=== PATIENT | female | born 1940 | race Caucasian/White ===

== ENCOUNTER 2019-02-12 00:31 | Observation (INO) | payer MEDICARE ==
[2019-02-12 01:51] LABS: Magnesium 1.2 mg/dL (1.6-2.6); Phosphorus 2.7 mg/dL (2.3-4.7)
[2019-02-12] MEDS ORDERED: hydrALAZINE 20 MG/ML VIAL ONE (02:01)
[2019-02-12] MEDS ORDERED: traMADol HCl 50 MG TAB PO PRN (02:01)
[2019-02-12] MEDS ORDERED: Ondansetron PF 4 MG/2 ML Vial IVP PRN (02:01)
[2019-02-12] MEDS ORDERED: hydrALAZINE 20 MG/ML VIAL SLOW IVP PRN (02:01)
[2019-02-12] MEDS ORDERED: Dextrose 5% in Water 1,000 ML IV PRN (02:03)
[2019-02-12] MEDS ORDERED: Ondansetron ODT 4 MG TAB PO PRN (02:03)
[2019-02-12] MEDS ORDERED: Dextrose 50% Abboject 50 ML SYRINGE SLOW IVP PRN (02:03)
[2019-02-12] MEDS ORDERED: Magnesium 2 GM/50 ML 2 GM in Premix Bag 1 BAG IVPB SCH (02:15)
[2019-02-12] MEDS ORDERED: Sodium Chloride 0.9% 1,000 ML IV SCH (02:30)
--- NOTE | 2019-02-12 02:46 | HP ---
This is Leighann Kern NP dictating a report for Chad Worley MD. REQUESTING PHYSICIAN: Dr. Dennis. HISTORY OF PRESENT ILLNESS: This is an 78-year-old female who was a transfer from [facility]. The patient had a ground level fall at home. The patient lives at home with her daughter [place] a farm. The patient was outside walking when she tripped and fell. The patient denies any dizziness, shortness of breath, or chest pain prior to falling. The patient denies any loss of consciousness. The patient reported pain and swelling to the left side of her face and swelling to her left hand. The patient was evaluated in [place] and transferred for continuous monitoring as the patient currently takes Eliquis daily. The patient did sustain a CVA approximately 4 years ago in which the patient was put on Eliquis. The patient's only deficit from her CVA is memory loss according to her daughter. The patient does report a recent cough, but denies any fever or chest pain. The patient initially did not want to be admitted to the hospital, but the patient's daughter encouraged her to stay overnight for observation. The patient finally agreed. The patient's left eyebrow superficial laceration was closed in [place] ER. The patient received 1 L normal saline in the ER in [place]. REVIEW OF SYSTEMS: Review of systems is negative unless otherwise indicated in the above HPI. PAST MEDICAL HISTORY: CVA, dementia, hypertension. PAST SURGICAL HISTORY: Left shoulder open reduction and internal fixation, left hip ORIF, left elbow ORIF, cholecystectomy. ALLERGIES: NO KNOWN DRUG ALLERGIES. SOCIAL HISTORY: Former tobacco user. The patient used to smoke 2 packs a day before her CVA 4 years ago. No alcohol or drug use. CURRENT MEDICATIONS: Eliquis and a blood pressure medication, unknown. PHYSICAL EXAMINATION: VITAL SIGNS: Blood pressure 156/81, pulse 108, respirations 20, temperature 98.9, SpO2 100% on room air. GENERAL: Elderly appearing female, hypertensive, in no distress. HEENT: Normocephalic, significant left facial ecchymosis and swelling to the left forehead, sutures in place to the left forehead. Pupils equal and reactive, no visual changes, moist mucous membranes, no cervical tenderness, no step-offs, trachea midline. RESPIRATORY: Equal chest rise and fall, bilateral breath sounds clear. No wheezing, rales, or rhonchi. No obvious chest deformity. CARDIOVASCULAR: Regular rate, mildly tachycardic, systolic heart murmur. ABDOMEN: Soft, nontender, nondistended. EXTREMITIES: Contusion and abrasion to left shoulder, splint in place to left lower extremity, positive movement and sensation, cap refill less than 2. Ecchymosis to fingers. Normal range of motion of both shoulders. Lower extremities with no obvious injuries. No pedal edema. Distal pulses 2+. PELVIS: Stable. NEUROLOGICAL: The patient is oriented to person, place, time, and event. GCS 15. LABORATORY DATA: WBC 18.8, RBC 4.70, hemoglobin 13.8, hematocrit 42.5, platelets 186. Sodium 139, potassium 3.6, chloride 102, CO2 21, anion gap 20, BUN 39, creatinine 2.01, estimated GFR 24, glucose 106, calcium 9.7, phosphorus 2.7, magnesium 1.2, alkaline phos 115. INR 1.7, Urinalysis positive for UTI. DIAGNOSTIC DATA: 1. Cervical spine CT, no cervical spine fracture. 2. Left forearm x-ray, no fracture. 3. Brain CT, no intraparenchymal hemorrhage or extra-axial hematoma. Extensive left facial and scalp soft tissue changes. No evidence of fracture. 4. Left hand x-ray, minimally displaced fracture along the proximal phalanx of the 5th digit. 5. Left shoulder x-ray, no fracture. 6. Left humerus x-ray, no evidence of fracture. 7. Facial bone CT, no acute fracture. 8. Chest Xray, no acute abnormality. Chronic lung changes. IMPRESSION: 1. Status post ground level fall, on Eliquis. 2. Left facial laceration and contusions. 3. Left 5th metacarpal fracture. 4. Hypomagnesium. 5. Uncontrolled hypertension. 6. Acute on chronic kidney disease stage 4. 7. Urinary tract infection, present on admission. 8. History of hypertension, cerebrovascular accident, dementia. PLAN: Admit the patient for observation. Gentle hydration overnight. Regular diet as tolerated. Left hand fracture has been splinted by the ER. We will consult Orthopedic Surgery for possible followup outpatient. We will replace electrolytes. We will restart the patient's home blood pressure medications since she has been hypertensive. Start PO antibiotics for UTI. We will have the patient work with Physical and Occupational therapy in the morning. The patient will possibly be discharged home with family tomorrow. Job ID: [id number] MTDD
[2019-02-12] MEDS ORDERED: Potassium Phosphate 15 MMOL in Sodium Chloride 0.9% 250 ML 250 ML IVPB SCH (03:00)
[2019-02-12 03:41] VITALS: BMI 19.5
[2019-02-12 04:33] LABS: Bilirubin Negative (Negative); Blood, Urine Negative (Negative); Clarity Clear (Clear); Glucose, Urine (Dipstick) Normal (Negative); Leukocyte 500 Leu/uL (Negative); Nitrite 2+ (Negative); Protein, Urine (Dipstick) 10 mg/dL (Neg-Trace); RBC/HPF 0-3 HPF (0-3); Squamous Epithelial 0-3 HPF (0-3); Urobilinogen Normal mg/dL (Less than 2)
[2019-02-12 04:43] LABS: Bacteria/HPF 4+ HPF (None Seen); WBC/HPF 21-50 HPF (0-3)
[2019-02-12 04:46] LABS: Urine Culture Reflex Yes Yes
[2019-02-12] MEDS: Acetaminophen 500 MG TAB PO SCH ×4 (06:39→21:19)
--- NOTE | 2019-02-12 07:15 | RAD ---
CHEST 1 VIEW: Date: 02/12/19 INDICATION: History of fall. COMPARISON: None. FINDINGS: There is severe emphysema. Heart size is within normal limits. There is a healed instrumented proxima l humerus fracture. No acute osseous abnormality is noted. IMPRESSION: No acute abnormality. Chronic lung changes. POS: BH
--- NOTE | 2019-02-12 07:52 | CT ---
PRELIMINARY REPORT/[facility]/EMERGENCY AFTER HOURS PROCEDURE: PROCEDURE INFORMATION: Exam: CT Maxillofacial Without Contrast Exam date and time: 02/12/2019 1:07 AM Clinical history: 78 years old, female; Injury or trauma; Initial encounter; Blunt trauma (contusions or hematomas); Forehead; Patient HX: 78 y/o F, with h/o dementia, CVA, presents to ED via transfer f [facility] ED S/P unwitnessed fall, with concussion +loc, 5th metacarpal FX on L, facial hemat bart, facial lac. 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 PT was unable to get up after the fall and was taken to other ED after family found PT down, with family also noting possible loc. TECHNIQUE: Imaging protocol: Computed tomography images of the face without contrast. COMPARISON: No relevant prior studies available. FINDINGS: Orbits: Orbits are normal. Globes are unremarkable. Sinuses: Right maxillary sinus fluid level. Bones/joints: No acute fracture. Soft tissues: Large left forehead,facial and periorbital hematoma. Left forehead laceration suspected . IMPRESSION: No acute fracture detected. Thank you for allowing us to participate in the care of your patient. Dictated and Authenticated by: Haydee Marmolejo MD 02/12/2019 2:04 AM Central Time ([place] & [place]) FINAL REPORT EMERGENCY AFTER HOURS CT FACIAL BONES: I agree with the preliminary report provided by [facility]. No acute displaced facial fracture is evident. There is a nonspecific air fluid level in the right ma xillary sinus without a visible maxillary sinus wall fracture. This may be related to acute sinusitis . There is prominent left frontal scalp and left periorbital contusion. Small laceration seen within th e left supraorbital soft tissues. No radiopaque foreign body is evident. Visualized globes are intact. Visualized intracranial contents demonstrate remote lacunar infarcts in volving the right globus pallidus and right cerebellum. POS: BH
[2019-02-12] MEDS: Polyethylene Glycol 3350 17 GM Packet PO SCH (08:23)
[2019-02-12] MEDS: Senokot S 8.6-50 MG TAB PO SCH ×2 (08:24→21:19)
[2019-02-12] MEDS: Nitrofurantoin Monohyd/M-Cryst 100 MG CAP PO SCH ×2 (08:24→21:19)
[2019-02-12] MEDS: Famotidine 20 MG TAB PO SCH (08:24)
[2019-02-12] MEDS: cloNIDine 0.1 MG TAB PO SCH ×2 (10:05→21:18)
--- NOTE | 2019-02-12 19:38 | PRG ---
DATE OF SERVICE: 02/12/2019 SUBJECTIVE: The patient was seen this morning, lying in bed with no signs of acute distress. Mentation was at baseline with GCS 14/15. She has dementia. Reported pain was well controlled. Tolerating regular diet. Had no complaints at the time of our evaluation. OBJECTIVE: VITAL SIGNS: Temperature 98.3, pulse 91, respirations 16, oxygen saturation 96% on room air, blood pressure 136/85. GENERAL: Elderly female, sitting in bed with no signs of acute distress. PULMONARY: Equal chest rise and fall. Clear breath sounds bilaterally. No signs of acute respiratory distress. CARDIAC: Regular rate and rhythm. No murmurs, gallops, or rubs. GI: Abdomen is soft, nontender, and nondistended. EXTREMITIES: 2+ pulses in all extremities. No significant swelling noted. Gross motor and sensation are intact. FACE: Left-sided bruising with hematoma and small laceration. No active bleeding at that time. NEUROLOGIC: GCS is 14/15, minus 1 for occasional confusion, which is her baseline. LABORATORY FINDINGS: There are no new laboratory findings to discuss. DIAGNOSTIC FINDINGS: There are no new diagnostic findings to discuss. ASSESSMENT: 1. Status post mechanical fall on Eliquis. 2. Left-sided facial contusion and laceration, status post repair. 3. Left-sided fifth metacarpal fracture, status post splinting. 4. Acute kidney injury on chronic kidney disease. 5. Urinary tract infection, present on admission. 6. History of dementia, cerebrovascular accident. PLAN: The patient will work with Physical and Occupational Therapy today. She will be discharged either home with home PT or to rehab when appropriate. We will discontinue the IV fluids. She will be given a 3-day course of Macrobid for her urinary tract infection. We will continue to monitor the patient and provide supportive care, and we will discharge her as soon as she is safe. The patient was seen and examined by Dr. Freire and myself this morning during rounds. Job ID: [id number]
--- NOTE | 2019-02-12 22:42 | PRG ---
DATE OF SERVICE: 02/12/2019 SUBJECTIVE: The patient remains on the surgical floor, lying in hospital bed, in no acute distress. The patient is awake, alert, and answering questions appropriately. The patient denies any pain at this time. The patient continues to tolerate a regular diet. The patient's left eye swelling has improved since last night. The patient voices no complaints at this time. The patient is requesting to go home with her family tomorrow with home physical therapy. OBJECTIVE: VITAL SIGNS: Stable, afebrile. GENERAL: Elderly female, lying in hospital bed, in no acute distress. HEENT: Left-sided facial ecchymosis, laceration repaired to left eyebrow with sutures and Steri-Strips, which are well approximated. PULMONARY: Equal chest rise and fall, no signs of acute respiratory distress. EXTREMITIES: Moves all extremities, distal pulses intact, splint to left forearm, clean, dry, and intact. NEUROLOGIC: The patient with a GCS of 14/15, -1 for occasional confusion, which is her baseline. ASSESSMENT: 1. Status post mechanical fall, on Eliquis. 2. Left-sided facial contusion and laceration, status post repair. 3. Left-sided fifth metacarpal fracture, status post splinting. 4. Acute kidney injury on chronic kidney disease, stage 4. 5. Urinary tract infection, present on admission. 6. History of dementia, cerebrovascular accident, hypertension. PLAN: Continue to have patient work with physical therapy. Continue regular diet as tolerated. Continue 3-day course of Macrobid for patient's urinary tract infection. Possibly discharge home with home physical therapy whenever patient is safe to be discharged. Job ID: [id number]
[2019-02-13] MEDS: Acetaminophen 500 MG TAB PO SCH ×3 (00:19→11:28)
[2019-02-13 04:42] LABS: Anion Gap 13 mmol/L (10-20); BUN (Urea Nitrogen) 22 mg/dL (9.8-20.1); Calc. Creatinine Clearance 33 mL/min (70-130); Carbon Dioxide 22 mmol/L (23-31); Chloride 106 mmol/L (98-107); Estimated GFR-MDRD 44; Glucose 96 mg/dL (83-110); Magnesium 1.5 mg/dL (1.6-2.6); Phosphorus 3.3 mg/dL (2.3-4.7); Potassium 3.4 mmol/L (3.5-5.1); Sodium 138 mmol/L (136-145)
[2019-02-13] MEDS ORDERED: Magnesium 2 GM/50 ML 2 GM in Premix Bag 1 BAG IVPB SCH (07:30)
[2019-02-13] MEDS: Senokot S 8.6-50 MG TAB PO SCH (08:01)
[2019-02-13] MEDS: Famotidine 20 MG TAB PO SCH (08:01)
[2019-02-13] MEDS: cloNIDine 0.1 MG TAB PO SCH (08:01)
[2019-02-13] MEDS: Nitrofurantoin Monohyd/M-Cryst 100 MG CAP PO SCH (08:02)
[2019-02-13] MEDS: Polyethylene Glycol 3350 17 GM Packet PO SCH (08:02)
[2019-02-13 12:01] VITALS: BP 123/75; TEMP 97.4
--- NOTE | 2019-02-13 15:10 | DIS ---
DATE OF ADMISSION: 02/12/2019 DATE OF DISCHARGE: 02/13/2019 ADMISSION DIAGNOSES: 1. Mechanical fall on Eliquis. 2. Left facial contusion. 3. Left facial laceration. 4. Left-sided fifth metacarpal fracture. 5. Acute on chronic kidney injury. 6. Urinary tract infection, present on admission. DISCHARGE DIAGNOSES: 1. Mechanical fall on Eliquis. 2. Left facial contusion. 3. Left facial laceration. 4. Left-sided fifth metacarpal fracture. 5. Acute on chronic kidney injury. 6. Urinary tract infection, present on admission. CONSULT PHYSICIANS: None. PROCEDURES: None. HOSPITAL COURSE: The patient is an 78-year-old female, who presented to the emergency department after a mechanical fall on Eliquis. The patient was found to have a left facial contusion and facial laceration, which was repaired. A fifth metacarpal fracture, which was splinted. Also of note, the patient had urinary tract infection and acute kidney injury on chronic kidney disease. She worked with Physical and Occupational Therapy for 2 days. Initially, acute rehab was recommended to the patient and her family. Because the patient does have history of dementia, we did speak with the daughter several times; however, the patient and the daughter wanted the patient to go home with home physical therapy. She was able to ambulate with a cane. At the time of discharge, the patient's pain was well controlled. She was tolerating regular diet, voiding and having bowel movements and had no complaints. She was given a prescription for Macrobid for a total therapy range of 3 days. She was restarted on all of her home medications except for Eliquis. Family was advised to discuss with the primary care physician the risks versus benefits of continuing to take Eliquis that she has had multiple recent falls. The patient's daughter at bedside who is her gas meter installer and lives with the patient agreed and reported she would try to get the patient into see her PCP this week. DISCHARGE DISPOSITION: Home with home physical therapy. DISCHARGE CONDITION: Satisfactory. PHYSICAL EXAMINATION: VITAL SIGNS: Temperature 98.3, pulse 73, respirations 14, oxygen saturation 95% on room air, blood pressure 165/91. GENERAL: Well-appearing elderly female, sitting up in bed with no signs of acute distress. HEENT: Face; left-sided facial bruising with small laceration that is clean, dry, and intact. PULMONARY: Equal chest rise and fall. Clear breath sounds bilaterally. No signs of acute respiratory distress. CARDIAC: Regular rate and rhythm. No murmurs, gallops, or rubs. GASTROINTESTINAL: Soft, nontender, nondistended. EXTREMITIES: 2+ pulses in all extremities. No significant swelling noted. Gross motor and sensation is intact. Splint to left upper extremity is clean, dry, and intact. NEUROLOGIC: GCS is 14, -1 for confusion. This is the patient's baseline. DISCHARGE INSTRUCTIONS: The patient was discharged home with home physical therapy. Activity as tolerated. Nonweightbearing to the left hand. She has a regular diet with [employer] b.i[employer] physical therapy, incentive spirometry, and a cane. DISCHARGE MEDICATIONS: Include, 1. Aspirin. 2. Clonidine. 3. Macrobid for a total of 4 additional doses. 4. MiraLAX. FOLLOWUP APPOINTMENTS: The patient is to see her primary care physician within the next week. No need for followup with Dr. Freire. Also, recommend following up with Dr. Ramirez of Hand Surgery. This is merely a summary of the patient's hospitalization. For full details, please see her medical record in its entirety. Job ID: [id number]
== END 2019-02-13 15:37 | disposition home or self-care (01) ==
LOC: ERS 00:31 → SJJU 00:59
PROVIDERS: ADMIT Specialist; ATTEND Specialist
DX: S01.81XA Laceration without foreign body of other part of head, initial encounter (principal); S62.307A Unspecified fracture of fifth metacarpal bone, left hand, initial encounter for closed fracture; I12.9 Hypertensive chronic kidney disease with stage 1 through stage 4 chronic kidney disease, or unspecified chronic kidney disease; N18.4 Chronic kidney disease, stage 4 (severe); N17.9 Acute kidney failure, unspecified; N39.0 Urinary tract infection, site not specified; F03.90 Unspecified dementia, unspecified severity, without behavioral disturbance, psychotic disturbance, mood disturbance, and anxiety; E83.42 Hypomagnesemia; Z86.73 Personal history of transient ischemic attack (TIA), and cerebral infarction without residual deficits; Z87.891 Personal history of nicotine dependence; Z79.01 Long term (current) use of anticoagulants; W18.30XA Fall on same level, unspecified, initial encounter
CPT/HCPCS: 36415; 70486; 71045; 80048; 81001; 83735; 84100; 87077; 87086; 87186; 96361; 96365; 96366; 96375; G0378; G0390; J0360; J3475; J7050